=== PATIENT | male | born 1995 | race Caucasian/White ===

== ENCOUNTER 2017-04-06 18:20 | Observation (INO) ==
[2017-04-06 19:04] LABS: HEMOGLOBIN 16.2 g/dL (14.0-18.0); MANUAL DIFF NEEDED? YES; MCH 30.4 PG (27-31); MCHC 34.5 g/dL (33-37); MCV 88.2 FL (81-99); MPV 9.9 FL (7.4-10.4); PLT 282 X1000 (130-400); RBC 5.33 XMIL (4.7-6.1)
[2017-04-06 19:35] LABS: BANDS 1 % (0-1); EOS 5 % (1-10); LYMPHS 45 % (21-51); MONO 9 % (1-9)
[2017-04-06 19:36] LABS: LARGE PLATELETS 1+
[2017-04-06 19:38] LABS: AGAP 11; ALBUMIN 4.2 g/dL (3.5-5.0); ALKALINE PHOSPHATASE 57 U/L (32-122); BUN 11 mg/dL (8-22); CALCIUM 8.8 mg/dL (8.8-10.2); CHLORIDE 101 mmol/L (98-107); COSMO 277; GOT 24 U/L (10-34); GPT 36 U/L (10-44); POTASSIUM 3.5 mmol/L (3.5-5.1); SODIUM 139 mmol/L (136-145); TCO2 27 mmol/L (25-35); TOTAL BILIRUBIN 0.53 mg/dL (0.20-1.00); TOTAL PROTEIN 6.5 g/dL (6.3-8.3)
[2017-04-06 20:53] LABS: URINE MICRO REVIEW NEEDED? NO; URINE SOURCE CLEAN CATCH
[2017-04-06 20:58] LABS: BILIRUBIN URINE NEGATIVE (NEGATIVE); BLOOD URINE NEGATIVE (NEGATIVE); COLOR YELLOW; GLUCOSE URINE NEGATIVE (NEGATIVE); LEUKOCYTES URINE MODERATE (NEGATIVE); NITRITE URINE NEGATIVE (NEGATIVE); PROTEIN URINE 50 mg/dL (NEGATIVE); SP GRAVITY URINE 1.025; TURBIDITY URINE CLEAR (CLEAR); UR EPITHELIAL CELLS <10 /HPF (<10); URINE BACTERIA NEGATIVE /HPF; URINE CULTURE NEEDED? YES; URINE WBC TNTC /HPF (<10); UROBILINOGEN URINE 3 mg/dL (NORMAL)
[2017-04-06 21:18] LABS: UR AMPHETAMINES QUAL PRESUMPTIVE POSITIVE (NONE DETECT); UR BARBITUATES QUAL NONE DETECTED (NONE DETECT); UR BENZODIAZEPIN QUAL PRESUMPTIVE POSITIVE (NONE DETECT); UR CANNABINOIDS QUAL PRESUMPTIVE POSITIVE (NONE DETECT); UR COCAINE QUAL NONE DETECTED (NONE DETECT); UR METHADONE QUAL NONE DETECTED (NONE DETECT); UR OPIATES QUAL PRESUMPTIVE POSITIVE (NONE DETECT); UR OXYCODONE QUAL NONE DETECTED (NONE DETECT); UR PCP QUAL NONE DETECTED (NONE DETECT)
--- NOTE | 2017-04-06 23:10 | PROVIDER DOCUMENTATION ---
This chart was entered by Ezekiel Lechuga Scribe, acting as scribe for Trino Brown MD. [id number] Abuse/Overdose - General Chief Complaint: Overdose Stated Complaint: OVERDOSE Time Seen by Provider: 04/06/17 18:21 Source: patient, EMS Allergies/Adverse Reactions: Allergies Allergy/AdvReac Type Severity Reaction Status Date / Time No Known Allergies Allergy Verified 04/06/17 18:36 Home Medications: Home Medication List Medication Instructions Recorded Confirmed Last Taken Type NK [No Home Medications] 04/06/17 04/06/17 Unknown History - History of Present Illness-Drug/Alcohol Nature of Presenting Problem: Pt is a 21 yowm who presents to ER via EMS after overdosing on an unknown opiate. Pt reports that he crushed up a pill that had some white powder around it and states that as soon as he snorted the pill, his next memory was being told to inhale while receiving IN narcarn. EMS reports that [facility] initiated CPR on scene and pt was satting at 56%. Pt reports that he is a recovering IV heroin user and reports that he witnessed his brother's murder several years ago and visited his grave yesterday and states that he thinks that may have contributed to his accidental OD today. Pt was given 2mg narcan IN and 2 more mg Narcan IM. This episode of drinking or use began:: just prior to arrival Severity: reports: moderate, severe Situational problems related to:: reports: other ( of sibling) Psychiatric Complaints: reports: depressed Associated Symptoms: denies: chest pain, diaphoresis, fever/chills, muscle aches , nausea, vomiting, weakness, trouble walking Any injuries associated with this episode of intoxication?: No Similar Symptoms Previously?: No Recently seen or treated by another doctor?: No - Substance Abuse Substance Use: reports: opiates Review of Systems - Adult - REVIEW OF SYSTEMS - ADULT Constitutional: denies: chills, fever, fatique, night sweats, weight gain, weight loss Eyes: reports: no symptoms reported Ears, Nose, Mouth & Throat: reports: no symptoms reported Cardiovascular: denies: chest pain, irregular heart rate, palpitations, poor circulation, syncope Respiratory: denies: cough, dyspnea on exertion, excessive sputum production, shortness of breath, wheezing Gastrointestinal: denies: abdominal pain, diarrhea, nausea, vomiting Genitourinary: reports: no symptoms reported Musculoskeletal: reports: no symptoms reported Integumentary: reports: no symptoms reported Neurological: reports: no symptoms reported Psychiatric: reports: no symptoms reported Endocrine: reports: no symptoms reported Hematologic/Lymphatic: reports: no symptoms reported Allergic/Immunologic: reports: no symptoms reported All Other Systems: Reviewed and Negative Past History - Adult - PAST MEDICAL HISTORY-ADULT Review of Records: reports: Nursing Assessment Review, Medications Reviewed - IMMUNIZATION STATUS Childhood Immunizations: See Nurse Assessment Flu Vaccine: See Nurse Assessment Physical Exam-General - PHYSICAL EXAM-ADULT Initial Vital Signs Reviewed: Yes - CONSTITUTIONAL General Appearance: appears well, alert, no apparent distress - NECK Neck: non-tender, full range of motion, supple - RESPIRATORY Respiratory: chest non-tender, lungs clear, normal breath sounds, no pleuratic chest pain, no respiratory distress, no accessory muscle use. negative: respiratory distress, decreased breath sounds, accessory muscle use, wheezing - CARDIOVASCULAR Cardiovascular: normal peripheral pulses, regular rate, rhythm. negative: bradycardia, tachycardia, irregularly irregular - GASTROINTESTINAL (ABDOMEN) Abdominal Exam: normal bowel sounds, non tender, soft, no organomegaly, no pulsatile mass. negative: distended, guarding, tenderness - MUSCULOSKELETAL Back Exam: no CVA tenderness, no vertebral tenderness. negative: CVA tenderness , vertebral tenderness Extremity: normal range of motion, non-tender, normal gait, normal inspection, no pedal edema, no calf tenderness, normal capillary refill, pelvis stable. negative: deformity, erythema, inflammation, swelling, tenderness - PSYCHIATRIC Psych/Mental Status: normal mood/affect, normal thought content, normal thought process, oriented x 3 Progress - PLAN OF CARE/RESULTS Progress/Plan/Lab Results: Vital Signs - 8 hr 04/06/17 18:30 04/06/17 20:41 Temperature 97.9 F Pulse Rate 100 H 72 Respiratory Rate 23 19 Blood Pressure 133/93 109/65 O2 Sat by Pulse Oximetry 96 97 Laboratory Results - last 24 hr 04/06/17 04/06/17 04/06/17 18:47 18:47 20:41 WBC 11.64 H RBC 5.33 Hgb 16.2 Hct 47.0 MCV 88.2 MCH 30.4 MCHC 34.5 RDW Std Deviation 12.8 Plt Count 282 MPV 9.9 Neut % (Auto) Not Reportable Lymph % (Auto) Not Reportable [place] % (Auto) Not Reportable Eos % (Auto) Not Reportable Baso % (Auto) Not Reportable Neut # (Auto) Not Reportable Lymph # (Auto) Not Reportable [place] # (Auto) Not Reportable Eos # (Auto) Not Reportable Baso # (Auto) Not Reportable Segmented Neutrophils 37 L Band Neutrophils 1 Lymphocytes 45 Monocytes 9 Eosinophils 5 Atypical Lymphocytes 3.0 Large Platelets 1+ Poikilocytosis 1+ Anisocytosis 1+ Sodium 139 Potassium 3.5 Chloride 101 Carbon Dioxide 27 Anion Gap 11 BUN 11 Creatinine 0.8 Estimated GFR/1.73 m2 > 60 BUN/Creatinine Ratio 14 Glucose 98 Calculated Osmolality 277 Calcium 8.8 Total Bilirubin 0.53 AST 24 ALT 36 Alkaline Phosphatase 57 Total Protein 6.5 Albumin 4.2 Globulin 2.3 Albumin/Globulin Ratio 1.8 Urine Source CLEAN CATCH Urine Color YELLOW Urine Turbidity CLEAR Urine pH 6.0 Ur Specific [place] 1.025 Urine Protein 50 A Ur Glucose (Stick) NEGATIVE Ur Ketones (Stick) 10 A Urine Blood NEGATIVE Urine Nitrite NEGATIVE Urine Bilirubin NEGATIVE Urobilinogen Dipstick 3 A Urine Leukocytes MODERATE A Urine WBC (Auto) TNTC A Urine RBC (Auto) 10-20 A U Epithel Cells (Auto) <10 Urine Bacteria (Auto) NEGATIVE Urine Opiates Screen Ur Oxycodone Screen Ur Methadone, Qual Ur Barbiturates Screen Ur Phencyclidine Scrn Ur Amphetamines Screen U Benzodiazepines Scrn Urine Cocaine Screen U Cannabinoids Screen 04/06/17 20:41 WBC RBC Hgb Hct MCV MCH MCHC RDW Std Deviation Plt Count MPV Neut % (Auto) Lymph % (Auto) [place] % (Auto) Eos % (Auto) Baso % (Auto) Neut # (Auto) Lymph # (Auto) [place] # (Auto) Eos # (Auto) Baso # (Auto) Segmented Neutrophils Band Neutrophils Lymphocytes Monocytes Eosinophils Atypical Lymphocytes Large Platelets Poikilocytosis Anisocytosis Sodium Potassium Chloride Carbon Dioxide Anion Gap BUN Creatinine Estimated GFR/1.73 m2 BUN/Creatinine Ratio Glucose Calculated Osmolality Calcium Total Bilirubin AST ALT Alkaline Phosphatase Total Protein Albumin Globulin Albumin/Globulin Ratio Urine Source Urine Color Urine Turbidity Urine pH Ur Specific [place] Urine Protein Ur Glucose (Stick) Ur Ketones (Stick) Urine Blood Urine Nitrite Urine Bilirubin Urobilinogen Dipstick Urine Leukocytes Urine WBC (Auto) Urine RBC (Auto) U Epithel Cells (Auto) Urine Bacteria (Auto) Urine Opiates Screen PRESUMPTIVE POSITIVE A Ur Oxycodone Screen NONE DETECTED Ur Methadone, Qual NONE DETECTED Ur Barbiturates Screen NONE DETECTED Ur Phencyclidine Scrn NONE DETECTED Ur Amphetamines Screen PRESUMPTIVE POSITIVE A U Benzodiazepines Scrn PRESUMPTIVE POSITIVE A Urine Cocaine Screen NONE DETECTED U Cannabinoids Screen PRESUMPTIVE POSITIVE A Orders Category Date Time Status Oxygen Therapy- ED Nursing DIRECTED Care 04/06/17 23:03 Active CBC WITH ELECTRONIC DIFF [HEME] Stat Lab 04/06/17 18:47 Completed CMP [COMPREHENSIVE METABOLIC PANEL] [CHEM] Stat Lab 04/06/17 18:47 Completed UA [UA NIMS W/REFLEX CULT] [URINALYSIS] Stat Lab 04/06/17 20:41 Completed UDS [URINE DRUG SCREEN] Stat Lab 04/06/17 20:41 Completed URINE CULTURE [RM] Routine Lab 04/06/17 20:59 Received Result Diagrams: 04/06/17 18:47 04/06/17 18:47 - REASSESSMENT Reassessment #1 Time Reassessed: 23:09 (pt was asleep with SaO2 of 84% on RA) Status: worsening Departure - Departure Date of Disposition Decision: 04/06/17 Time of Disposition Decision: 23:10 DIAGNOSIS: Opiate overdose Qualifiers: Encounter type: initial encounter Injury intent: accidental or unintentional Qualified Code(s): T40.601A - Poisoning by unspecified narcotics, accidental ( unintentional), initial encounter Disposition: ADMITTED INPATIENT 09 Certified Medical Emergency: Emergent Condition: Fair - Critical Care Note This patient required my direct & personal management of CC.: No This chart was documented by the indicated scribe, (Ezekiel Lechuga Scribe) and accurately reflects the services I performed and decisions made by me, Trino Shepherd MD, as attested by the provider's signature.
[2017-04-06] MEDS ORDERED: NEXIUM IV SCH (23:50)
[2017-04-06] MEDS ORDERED: NS 1,000 ML IV SCH (23:50)
[2017-04-06] MEDS ORDERED: NS 1,000 ML IV ONE (23:50)
[2017-04-07] MEDS ORDERED: SODIUM CHLORIDE 0.9% INJ SCH ×2 (00:15→00:22)
--- NOTE | 2017-04-07 00:20 | ED EKG INTERP ---
This chart was entered by Ezekiel Lechuga Scribe, acting as scribe for Trino Brown MD. EKG Interpretation - EKG Time of EKG reading by physician:: 23:59 EKG Read and Signed by:: Trino Brown EKG Interpretation (*Must complete 3 of following elements*): Abnormal Rate: 43 Rhythm: Marked sinus bradycardia This chart was documented by the indicated scribe, (Ezekiel Lechuga Scribe) and accurately reflects the services I performed and decisions made by me, Trino Shepherd MD, as attested by the provider's signature.
[2017-04-07] MEDS ORDERED: NARCAN IV ONE (00:21)
[2017-04-07] MEDS ORDERED: LOVENOX SUBQ SCH (00:22)
[2017-04-07] MEDS ORDERED: ZOFRAN IV PRN (00:22)
[2017-04-07] MEDS: NARCAN 2 MG in NS 500 ML IV SCH ×2 (00:32→05:46)
[2017-04-07] MEDS ORDERED: ROCEPHIN 1 GM/NS 1 GM/50 ML IVPB IV SCH (01:15)
[2017-04-07 04:26] LABS: ALLEN TEST YES; BE 1.7 mmoll (-3.0-3.0); BLOOD TYPE ARTERIAL; DRAW SITE R RADIAL; METHB 0.7 % (0.0-1.5); O2(CT) 17.5 mL/dL (15.0-23.0); PCO2(98.6) 45 mmHg (35-45); PO2(98.6) 52 mmHg (60-100); SAMPLE BLOOD; SAO2 91.5 % (95.0-100.0); THB 14.6 g/dL (11.5-17.4); pH(98.6) 7.39 (7.35-7.45)
[2017-04-07 04:27] LABS: MODALITY ROOM AIR
[2017-04-07 04:59] LABS: MANUAL DIFF NEEDED? NO
[2017-04-07 05:01] LABS: BASO% 0.6 % (0.0-0.8); EOS# 0.34 X1000 (0.0-0.7); EOS% 3.1 % (0.0-10.0); HEMATOCRIT 42.1 % (42.0-52.0); IMM GRAN# 0.02 X1000 (0.0-0.04); IMM GRAN% 0.2 % (0.0-0.5); LYMPH# 2.35 X1000 (1.2-3.4); LYMPH% 21.4 % (20.5-51.1); MCH 29.8 PG (27-31); MCHC 33.3 g/dL (33-37); MCV 89.6 FL (81-99); MONO# 0.94 X1000 (0.11-0.59); MONO% 8.6 % (1.7-9.3); MPV 10.2 FL (7.4-10.4); NEUT% 66.1 % (42.2-75.2); PLT 228 X1000 (130-400)
--- NOTE | 2017-04-07 05:20 | HISTORY AND PHYSICAL ---
DATE AND TIME OF HISTORY AND PHYSICAL: 04/06/2017 at 23:50. CHIEF COMPLAINT: Overdose. HISTORY OF PRESENT ILLNESS: Mr. Ortega is a 21-year-old male who presented to the ER [facility] at approximately 18:20 by EMS. Mr. Ortega was found on scene with a O2 saturation of 56%. They also report when they arrived on scene that some 1st responders or bystanders were doing CPR on him as well. He was given 2 mg of Narcan IM as well as an additional 2 mg intranasally. The patient did respond well to this. Upon arrival, he was alert oriented x3 and initial vital signs were temperature 97.9 degrees, heart rate 100, respirations 23, blood pressure 133/93. Oxygen saturation was 96% on room air. The patient states that he does have a history of previous IV heroin abuse though has not used any opioid type medications recently. He states that he was with his friend today who wanted him to try a pill he had. The patient stated that he thought was a "Mercedes". He stated that he crushed it up and snorted it. According to the patient, this was his last recollection of anything happening except for when he woke up in the ambulance after receiving Narcan. The patient states that he does have some depression and posttraumatic stress disorder from witnessing his brother's murder several years ago. He did report that he visited his grave site yesterday and this had him thinking about things and could have contributed to him relapsing and using opiates again though the patient states that this overdose was accidental. He denies any thoughts of suicide. He denies intentionally taking medicine trying to harm himself. He denies any other thoughts of harming himself at this time. The patient also does admit to using other substances that include Adipex, Valium, and smoking marijuana. He states that he does not have prescriptions for these medications. He also reports some occasional alcohol use. He did report drinking a pint of alcohol a couple days ago but he denies any regular use. He also denies any recent IV drug abuse. Also, the patient complains of some occasional dizziness though this is not of new onset and has been ongoing for quite some time. He also reports that he frequently has heartburn and indigestion which causes him to have some nausea and upset stomach at times and he reports that he has been having dysuria for approximately 1 week. He denies any fever, body aches or chills though. He also denies any headache, chest pain, shortness of breath, cough, abdominal pain, vomiting, diarrhea or pain, numbness or tingling in extremities. Upon evaluation in the ER, the patient was initially monitored for approximately 4 hours though unfortunately did start to resedate. The patient became very drowsy. His oxygen saturation dipped into the low 80s. Due to this, the patient will have to be admitted to the ICU for further treatment and monitoring and possibly will need placement on a Narcan drip to control his sedation level. Upon my evaluation, the ER the patient was still alert and oriented x3. He was awake and alert, able to respond all questions appropriately. He actually was sitting up in bed eating as I came into the room. He was not have any difficulty eating or swallowing at this time. At this time we will admit the patient for continued monitoring inpatient to the ICU. REVIEW OF SYSTEMS: A 12 point review of systems was conducted with the patient. All were negative except for pertinent positives mentioned in above HPI. PAST MEDICAL HISTORY: 1. Depression. 2. Posttraumatic stress disorder. 3. Drug abuse. 4. Previous history of Tylenol overdose. PAST SURGICAL HISTORY: Patient denies any surgical history. SOCIAL HISTORY: The patient does report that he currently smokes 2 packs of cigarettes per day. He reports occasional alcohol use. He does report substance abuse of Adipex and Valium as well as marijuana though denies any opioid abuse or IV drug abuse at this time though does have a previous history of IV heroin abuse. The patient's depression and PTSD as well as his previous drug abuse issues were related to him witnessing his brother being murdered several years ago. He states that his brother was murdered in the [employer] grocery store parking lot and that he was in the vehicle with him when this murder occurred and witnessed him passing away. FAMILY HISTORY: Positive for his grandfather having lung cancer. There is also a family history of heart disease, high blood pressure and diabetes mellitus. ALLERGIES: The patient reports that he is allergic to an unknown antibiotic. HOME MEDICATION: The patient denies any prescriptions for home medications. DIAGNOSTIC DATA/LABORATORY RESULTS: White blood cell count 11.64, hemoglobin 16.2, hematocrit 47, platelet count is 282,000. Sodium 139, potassium 3.5, chloride 101, bicarb 27, BUN 11, creatinine 0.8, glucose 98, calcium 8.8. Liver function tests are within normal limits. A urinalysis was obtained via clean catch, was positive for protein, ketones, moderate leukocytes , too numerous to count white blood cells, 10-20 red blood cells. It was negative for bacteria or nitrites. His urine drug screen was positive for opiates, amphetamine, benzodiazepines and cannabinoids. EKG performed showed marked sinus bradycardia at a rate of 43 with a QTc of 375. PHYSICAL EXAMINATION: VITAL SIGNS: Temperature 97.1 degrees, heart rate 70, respiratory rate 18, blood pressure 132/59, oxygen saturation is 96% on room air. GENERAL: Mr. Ortega is a 21-year-old male who was resting in the ER stretcher. He was in no acute distress. He was awake, alert and able to answer all questions appropriately. Upon my initial examination, the patient was awake and alert though throughout examination towards the end he did appear to become more drowsy than he previously was. HEENT: Head is atraumatic, normocephalic. Pupils, equal, round, reactive to light. Oral mucosa is moist. Oropharynx is clear. NECK: Supple. Trachea midline. CARDIOVASCULAR: Patient has normal S1, S2. No murmurs, gallops, rubs appreciated, with a regular rate and rhythm though at times during my examination the patient did become slightly bradycardic dipping into the high 40s. PULMONARY: Patient has symmetrical chest expansion bilaterally. Lung sounds are clear to auscultation in bilateral full huitron. He is having no respiratory difficulty. He is currently on room air at this time maintaining oxygen saturations of 96%. ABDOMEN: Soft, nontender, nondistended. Bowel sounds were present in all 4 quadrants, were normoactive. EXTREMITIES: No cyanosis, clubbing, or edema noted. Pulse, motor and sensory were intact in all extremities. INTEGUMENTARY: The patient's skin is pink, warm, dry, and intact. No lesions or sores noted. NEUROLOGICAL: Patient is alert and oriented x3. Cranial nerves 2-12 are grossly intact. ASSESSMENT AND PLAN: 1. Toxic encephalopathy. This is likely secondary to the patient's overdose with suspected opioids and the patient also has polysubstance abuse issues as well. He will be placed in the ICU for close monitoring. He will have neuro checks q.2 hours. He will be on aspiration precautions. We will elevate the head of the bed. We will do vital signs q.1 hour. Strict intake and output. We will go ahead and hydrate the patient. He did receive a 1 L normal saline bolus and we will continue normal saline at 150 mL/h. Also, we will place the patient on a Narcan drip and we will titrate this to effect and we will continue to closely monitor the patient's condition. 2. Overdose. As previously mentioned, this is likely secondary to opiates as the patient does have some polysubstance abuse problems. I did speak with him about this at length. He denied at this time that this was intentional. He states this was accidental. The patient does have a history of depression and PTSD as well as a previous Tylenol overdose though he is denying any thoughts or intentions of harming himself tonight. We will continue with treatment as mentioned for #1 and continue to follow. 3. Polysubstance drug abuse. I did speak with the patient at length about his need to stop abusing drugs. The patient was honest and did admit to all the drugs that he currently abuses. Once the patient has become more medically stable, we would like to continue to encourage him stop using drugs and obtaining drug abuse treatment or counseling. 4. Urinary tract infection. The patient did have leukocytes as well as white blood cells and RBCs present in his urine. He has been symptomatic as well reporting dysuria for a week. We will go ahead and treat him with Rocephin 1 g IV q.[address] an order for a urine culture and await those results. 5. Nicotine dependence. We did curriculum counselor the patient on the need for smoking cessation. We will continue to do this throughout his admission and upon discharge. The patient will be placed in ICU with telemetry. He will be closely monitored. DVT prophylaxis will be provided with Lovenox 40 mg subcutaneously q.24 hours. GI prophylaxis will be provided with Nexium 40 mg intravenous q.24 hours. We will repeat a CBC, CMP and an arterial blood gas in the morning. Further orders and recommendations pending hospital course, diagnostic studies, and physician evaluation. Total critical care time with this patient was 45 minutes. Dictated by GERARDO Melchor for Damion Valle MD cc: Damion Valle MD [facility]
[2017-04-07 05:25] LABS: AGAP 10; ALBUMIN 3.5 g/dL (3.5-5.0); ALKALINE PHOSPHATASE 46 U/L (32-122); BUN 11 mg/dL (8-22); CALCIUM 8.5 mg/dL (8.8-10.2); CHLORIDE 105 mmol/L (98-107); COSMO 285; GOT 18 U/L (10-34); GPT 31 U/L (10-44); POTASSIUM 3.5 mmol/L (3.5-5.1); SODIUM 142 mmol/L (136-145); TCO2 27 mmol/L (25-35); TOTAL PROTEIN 5.3 g/dL (6.3-8.3)
[2017-04-07 07:51] VITALS: BP 105/61
--- NOTE | 2017-04-08 07:30 | DISCHARGE SUMMARY ---
ADMISSION DATE: 04/07/2017 DISCHARGE DATE: 04/07/2017 FINAL DISCHARGE DIAGNOSES: 1. Narcotic overdose. 2. Polysubstance abuse. 3. Urinary tract infection. 4. Leukocytosis. 5. Gastroesophageal reflux disease. HOSPITAL COURSE: Mr. Ortega is a 21-year-old male with a history of polysubstance abuse who presented to the ER after overdosing on narcotics. The patient stated that he was not trying to harm himself but was admitted to the ICU on a Narcan drip. By this morning, the patient was awake and alert, and stated that he took something that he was not familiar with and overdosed. The patient was noted to have a leukocytosis and a urinary tract infection, and was treated with IV Rocephin. The patient did report severe reflux and was started on a proton pump inhibitor. The patient was offered a GI evaluation; however, he declined. The patient was noted to be alert and oriented x3, and stated that he was going to find a primary care physician and try to get into treatment for his polysubstance abuse. The patient was ultimately cleared for discharge home on 04/07/2017. DISCHARGE MEDICATIONS: 1. Omeprazole 40 mg p.o. daily. 2. Augmentin 875/125 one tablet oral twice a day for 5 days. 3. Zofran 4 mg p.o. every 6 hours p.r.n. for nausea. DISCHARGE DIET: Regular diet. ACTIVITY: As tolerated. FOLLOWUP INSTRUCTIONS: The patient has been advised to find a primary care physician so that he can be referred to a market stall vendor for further workup. cc: Jillian Hernandez MD MTDD
--- NOTE | 2017-04-09 08:09 | EKG Report ---
Test Performed on : 04/06/2017 11:59:26 PM Test Reason : no order in [employer] Blood Pressure : / mmHG Vent. Rate : 043 BPM Atrial Rate : 043 BPM P-R Int : 128 ms QRS Dur : 096 ms QT Int : 444 ms P-R-T Axes : 064 028 024 degrees QTc Int : 375 ms Marked sinus bradycardia. Abnormal ECG No previous ECGs available Unconfirmed Result
== END 2017-04-07 09:24 | disposition home or self-care (01) ==
LOC: ED 18:20 → INTOOBSV 04-07 00:07 → ICU 04-07 00:07 → SUATTDRO 04-07 00:07 → ICU 04-07 00:48
PROVIDERS: ATTEND Internal Medicine